=== PATIENT | male | born 1970 | race Caucasian/White ===

== ENCOUNTER 2017-11-28 16:52 | Outpatient (CLI) | payer OTHER ==
[2017-11-28 17:39] LABS: eGFR (African) > 60; eGFR (Non-African) > 60
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
== END 2017-11-28 16:53 ==
LOC: LAB 16:52
PROVIDERS: ATTEND Family Medicine
DX: I20.0 Unstable angina (principal); M16.11 Unilateral primary osteoarthritis, right hip
CPT/HCPCS: 36415; 80053; 80061; 84484

== ENCOUNTER 2017-12-11 14:19 | Outpatient (CLI) | payer OTHER | END 2017-12-11 14:20 | LOC: CARD 14:19 | PROVIDERS: ATTEND Internal Medicine Cardiovascular Disease | DX: I25.10 Atherosclerotic heart disease of native coronary artery without angina pectoris (principal); R07.9 Chest pain, unspecified; E78.5 Hyperlipidemia, unspecified; Z72.0 Tobacco use; Z95.1 Presence of aortocoronary bypass graft | CPT/HCPCS: 99213 ==